=== PATIENT | male | born 1950 | race Caucasian/White ===

== ENCOUNTER 2016-06-23 22:21 | Emergency (ER) | payer MEDICARE ==
--- NOTE | 2016-06-24 01:08 | ED CLINICAL REPORT ---
Clinical Report - Physicians/Mid Levels [facility] [address] [place] [address] 06/23/2016 22:23 Patient: BERTHA ROMERO Time Seen: 0036. Arrived- By private vehicle. Historian- patient. HISTORY OF PRESENT ILLNESS Chief Complaint: VOMITING. This started today and is still present and worsening. It was abrupt in onset and has been constant but is not gone now. The patient has had nausea and vomiting. The illness is described as severe. (dizziness. reports feeling a pop in the left ear. states he has been dealing with URI symptoms off and on for the past few weeks. Reports also having a "plugged ear" and being on abx for the past few days. He states it was recently stopped because the ear did not show signs of infection on repeat exam and did not appear to be helping. no recent barotrauma.). Similar symptoms previously: None. Recent medical care: The patient was seen recently in a clinic. REVIEW OF SYSTEMS No fever, headache, chest pain, difficulty breathing or skin rash. No blurred vision. All systems otherwise negative, except as recorded above. PAST HISTORY See nurses notes. Medications: Alfuzosin HCl ER Oral (pt can't remember name ). A Statin - pt can't remember name . ASA. Omeprazole Oral. Allergies: Morphine and Related.(nausea, vomiting) Nausea Medication. (pt can't remember name ) Surgical gas. (gets very emotional ). SOCIAL HISTORY Never smoker. No alcohol use or drug use. No recent travel. Is a local resident. 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 ADDITIONAL NOTES The nursing notes have been reviewed. PHYSICAL EXAM Vital Signs: 06/23/2016 22:37 BP: 170/87. HR: 85. RR: 16. O2 saturation: 97%. Hypertensive. Oxygen saturation normal. Appearance: Alert. Oriented X3. Patient in moderate distress. (actively wretching and vomiting clear/white mucus). Eyes: Pupils equal, round and reactive to light. Eyes normal inspection. ENT: Ears normal. Nose normal. Pharynx normal. Neck: Normal inspection. Neck supple. CVS: Normal heart rate and rhythm. Heart sounds normal. Pulses normal. Respiratory: No respiratory distress. Breath sounds normal. No rales, rhonchi or wheezes. Abdomen: Soft and nontender. Bowel sounds normal. Back: Normal inspection. Skin: Skin warm and dry. Normal skin color. No rash. Normal skin turgor. Extremities: Extremities exhibit normal ROM. No lower extremity edema. Neuro: Oriented X 3. No motor deficit. No sensory deficit. LABS, X-RAYS, AND EKG Laboratory Tests: CBC w Diff: (EV: 06/23/2016 23:15) ( [facility]/23/2016 23:34) Final results Test Result Flag Units (Reference) WHITE BLOOD COUNT 16.2 H K/uL (4.5-11.5) RED BLOOD COUNT 5.06 M/uL (4.50-5.90) HEMOGLOBIN 15.1 gm/dL (13.5-17.5) HEMATOCRIT 45.6 % (41.0-53.0) MEAN CELL VOLUME 90 fL (80-100) MEAN CORPUSCULAR HGB 30 pg (26-34) MEAN CORPUSCULAR HGB CONC 33 g/dL (31-37) RED CELL DISTRIBUTION WIDTH 13.2 % (11.6-14.8) PLATELET COUNT 310 K/uL (150-400) LYMPH % 12.7 L % (25-40) MONO % 5.0 % (3-14) GRANULOCYTE % 82.3 CMP: (EV: 06/23/2016 23:15) ( [facility] 06/23/2016 23:47) Final results Test Result Flag Units (Reference) GLUCOSE 103 mg/dL (70-110) BUN 21 H mg/dL (7-18) CREATININE 1.1 mg/dL (0.6-1.3) Estimated GFR >60 mL/min Estimated GFR- >60 mL/min Note: Persistent reduction over 3 months in eGFR<60 mL/min/1.73 m2 defines CKD. Patients with eGFR values>=60 mL/min/1.73 m2 may also have CKD if evidence ofpersistent proteinuria. Additional information may be foundat [email or web address].org. SODIUM 142 mmol/L (136-145) POTASSIUM 3.9 mmol/L (3.5-5.1) CHLORIDE 106 mmol/L (98-107) CARBON DIOXIDE 26 mmol/L (21-32) CALCIUM 10.0 mg/dL (8.5-10.1) TOTAL PROTEIN 8.1 g/dL (6.4-8.2) ALBUMIN 4.0 g/dL (3.3-5.0) BILIRUBIN, TOTAL 0.3 mg/dL (0.0-1.0) ALKALINE PHOSPHATASE 78 U/L (46-116) AST (SGOT) 31 U/L (15-37) ALT (SGPT) 62 U/L (12-78) LIPASE 214 U/L (73-393) . PROGRESS AND PROCEDURES Course of Care: he patient is a pleasant 66-year-old male with past medical history significant for recent URI type symptoms as well as otitis media and recentcessation of antibiotics. The patient describes a picture in which thetympanic membrane likely has been disrupted. This coincides with the patient's examination well. Patient is having nausea and vomiting likely due to the middle ear disruption. Patient will be given nausea medication andthen subsequently meclizine for the vertiginous type of symptoms. Patient be reevaluated once his medications have been given. Patient reports no improvement with Zofran. Reglan will be given in addition to the Zofran that was provided. We'll reassess after the Reglan has been given symptoms are still persistent. Because of the patientcontinuednausea and vomiting, we'll provide patient Ativan as benzodiazepines are also noted to have antiemetic type effects. Patient was reevaluated by that significant improvement with his nausea and vomiting. Patient is no longer actively retching. I discussion patient in regards to his workup here in the emergency department. Laboratory studies were ordered after the patient could not betreated effectively with the Zofran or Reglan. Laboratory studies show elevated white blood cell counthowever no other abnormalities noted on examination and elevated white blood cell count is a nonspecific finding. Patient still reporting mild amount of dizziness while here in the emergency department. Patient was offered longer stay here in the emergency department as well as IV fluids. Patient is agreeable to the continued treatment and plan. Once IV fluids of been given, patient reported feeling significantly improved. Head discussion the patient in regards to symptoms here in the emergency department an ear nose and throat follow-up. Patient reports they'll follow up with his primary care Dr. Prescription for benzodiazepine for nausea provided to the patient. Of note, patient discloses to me that he brought his here to the emergency departmentseveral months agoand was diagnosed with cancer. Patient reports having astressfultime dealing with thenew diagnosis ofcancer with his spouse. Patient reports being under a significant amount of stress. Expressed my condolences for the patient and thepatient's spouse. Disposition: Discharged. Condition: good. CLINICAL IMPRESSION 06/23/2016 22:37 BP: 170/87. HR: 85. RR: 16. O2 saturation: 97%. Acute nontraumatic perforation of the left tympanic membrane, (acute). Acute vertigo of peripheral origin: labrynthitis. Hypertensive. Oxygen saturation normal. INSTRUCTIONS Warnings: GENERAL WARNINGS: Return or contact your physician immediately if your condition worsens or changes unexpectedly, if not improving as expected, or if other problems arise. SPECIFICALLY, return if you develop pain, fever, vomiting, the inability to keep fluids down, blood in vomitus, blood in diarrhea, fainting or lightheadedness. Your Current Medications: CONTINUE TAKING THE FOLLOWING MEDICATIONS: A Statin - pt can't remember name *. Alfuzosin HCl ER Oral : pt can't remember name. ASA*. Omeprazole Oral. Prescription Medications: Clonazepam 0.5 mg orally disintegrating tablet: Take 1 orally every 6 hours. Dispense fifteen (15). No refills. (PRN nausea/vomiting) Follow-up: Return to the emergency department as needed. Follow up with your doctor in three days. Reason for referral: recheck today's concerns. Summary of care provided to patient via paper. Screening today revealed the patient's blood pressure to be in the normal range. The patient should follow up with a primary care provider for blood pressure management. Understanding of the discharge instructions verbalized by patient. Follow-up with: Steven Roche MD, ENT, , [address], , [place], [id number] Follow up in three days. Reason for referral: recheck today's concerns. Summary of care provided to patient via paper. (Electronically signed by Demarcus Llamas Dr. 06/24/2016 5:59)
--- NOTE | 2016-06-24 01:08 | ED NURSING NOTES ---
Clinical Report - Nurses [facility] [address] [place] [address] 06/23/2016 22:23 Patient: BERTHA ROMERO TRIAGE Triage time 22:37. Acuity: LEVEL 3. Chief Complaint: NAUSEA and VOMITING (Left ear pain, fullness). 22:49. Alert. SEPSIS SCREEN: Sepsis Screen. Negative (no infection suspected/documented). --22:49 Nael Moreland R.N. 22:37 06/23/16. BP: 170/87. HR: 85. RR: 16. O2 saturation: 97% on room air. --22:49 Nael Moreland R.N. Weight: 89.3 kg stated. Height/Length: 69.5 inches Per Patient. BMI: 28.7. --22:47 Nael Moreland R.N. Medications ASA. Omeprazole Oral. --22:44 Nael Moreland R.N. A Statin - pt can't remember name . --22:45 Nael Moreland R.N. Alfuzosin HCl ER Oral (pt can't remember name ). --22:45 Nael Moreland R.N. Allergies Morphine and Related.(nausea, vomiting) --22:41 Nael Moreland R.N. Surgical gas. (gets very emotional ) --22:41 Nael Moreland R.N. Nausea Medication. (pt can't remember name ) --23:01 Nael Moreland R.N. The following entry was struck and corrected by Nael Moreland R.N., 23:02 (06/23/16) Reason for correction - other(correction). <<STRICKEN ENTRY-- Surgical gas. --22:41 Nael Moreland R.N. --END STRIKE>> The following entry was struck and corrected by Nael Moreland R.N., 23:01 (06/23/16) Reason for correction - other(correction). <<STRICKEN ENTRY-- Morphine and Related. --22:41 Nael Moreland R.N. --END STRIKE>>. Medication/allergy information source: the patient. --22:49 Nael Moreland R.N. History Arrived by private vehicle, and accompanied by friend. Primary physician (Dar). Onset. (Ear pain for about 1 week, vomiting for about 1 hr). ( Patient reports being treated for an ear infection was taken off the anti-biotic because it wasn't helping, tonight about 2129 he felt a pop in his left ear then began to nauseated with vomiting). 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 PAST MEDICAL HX: Immunizations: up-to-date. SOCIAL HX: Former smoker, end date 2007. No alcohol use or drug use. No infectious disease exposure. ABUSE ASSESSMENT: No report of abuse. FALL RISK ASSESSMENT: Fall risk assessment completed. No fall risk identified. NUTRITIONAL RISK ASSESSMENT: The nutritional risk assessment revealed no deficiencies. FUNCTIONAL ASSESSMENT: Functional assessment: no impairments noted. LEARNING NEEDS ASSESSMENT: The learning needs assessment revealed no barriers. SKIN INTEGRITY ASSESSMENT: Skin integrity risk assessment completed. No skin integrity risk identified. --22:49 Nael Moreland R.N. PROBLEMS: Appendicitis. Dysphagia. Acid Reflux. Diverticulosis. Diverticulitis. --22:42 Nael Moreland R.N. ADDITIONAL SURGERIES: Back Surgery. Cervical spine fusion. Colonoscopy. Neck Surgery. --22:43 Nael Moreland R.N. Interventions ID band on patient. To treatment room. --22:49 Neal Moreland R.N. PHYSICAL ASSESSMENT 22:40. To room via wheelchair. Patient gowned. GENERAL / NEURO / PSYCH: Alert. Oriented X 4. HEENT: No facial asymmetry noted. Mucous membranes are pink. RESPIRATORY: Respirations not labored. GI / : Emesis noted. Has vomited once. SKIN: Skin intact. Skin is warm and dry. Normal skin turgor. --22:40 Nael Moreland R.N. NURSING PROGRESS NOTES 22:40. Head of bed elevated. Two patient identifiers checked. Call light placed in reach. Bed placed in lowest position. Brakes of bed on. Patient ready for evaluation- chart flagged. --22:40 Nael Moreland R.N. 22:47 06/23/2016 Zofran ODT (Ondansetron) PO 4 mg given. Allergies verified and confirmed 5 rights. --22:50 Nael Moreland R.N. 23:12 06/23/2016 Site #1 started via IV in the right antecubital space with an 20g angiocath, with aseptic technique and good blood return; one attempt. Blood drawn: rainbow set. Labeled in the presence of the patient and held. Saline lock flushed with 10 mL saline. --23:17 Nael Moreland R.N. 23:14 06/23/2016 Reglan (Metoclopramide HCl) IVP 10 mg given over 2 minute(s) via site #1. Allergies verified and confirmed 5 rights. IV patency established. IV site checked: no pain, redness, or swelling. IV flushed thoroughly pre- and post-medication administration. --23:18 Nael Moreland R.N. 23:26 06/23/2016 Ativan (LORazepam) IVP 1 mg given over 2 minute(s) via site #1. Allergies verified, confirmed 5 rights and sedative warning given to the patient and patient's cash management clerk. IV patency established. IV site checked: no pain, redness, or swelling. IV flushed thoroughly pre- and post-medication administration. --23:29 Nael Moreland R.N. 23:31. Pulse oximeter placed on patient. --23:31 Nael Moreland R.N. 23:33. Oxygen administered by nasal cannula at 2 liters. --23:33 Nael Moreland R.N. 23:51 06/23/2016 Meclizine PO 25 mg given. Allergies verified, confirmed 5 rights and sedative warning given to the patient. --23:51 Nael Moreland R.N. 00:14 06/24/2016 Started bag #1 1000 mL IV Fluids IV NS (Saline); at 1000 mL/hr over 1 hour(s) via site #1 --00:14 Nael Moreland R.N. 00:56. Oxygen discontinued. --01:00 Nael Moreland R.N. 00:56 06/24/2016 IV Saline Lock Drip IV Discontinued: bag #1 infused. Total amount infused: 1000 mL. IV patency established. IV site checked: no pain, redness, or swelling. IV flushed thoroughly. --01:01 Nael Moreland R.N. 01:06. The patient is calm and resting quietly. RESPIRATORY: No respiratory distress. SKIN: Skin is warm and dry. Skin color within normal limits. --01:09 Nael Moreland R.N. 23:01 06/23/2016 Zofran ODT PO Response: (no improvement). --01:13 Nael Moreland R.N. 23:37 06/23/2016 Reglan IVP Response: (no improvement, pt still dry heaving). --01:15 Nael Moreland R.N. 00:56 06/24/2016 IV Fluids IV NS Discontinued: bag #1 infused. Total amount infused: 1000 mL. IV patency established. IV site checked: no pain, redness, or swelling. IV flushed thoroughly. --01:10 Nael Moreland R.N. 22:50 Patient continues to vomit. --01:12 Nael Moreland R.N. DISPOSITION / DISCHARGE 00:58 06/24/2016 Site #1 removed upon discharge. Catheter intact. Bandage applied. --01:02 Nael Moreland R.N. Departure time: 01:09. Condition at departure: stable. No learning barriers present. Discharge instructions provided and reviewed with cash management clerk and the patient. Reviewed medication(s) side effects, precautions, dosing and course information. Prescription(s) given to the patient. Patient and cash management clerk verbalized understanding. Written instructions provided in Albanian. The patient was discharged home and accompanied by cash management clerk. He left the Emergency Department ambulatory and via private vehicle. Electrophysiology Scientist driving. FALL RISK ASSESSMENT: Fall risk assessment completed. No fall risk identified. --01:08 Nael Moreland R.N. 00:57 06/24/16. BP: 105/53. HR: 66. RR: 15. O2 saturation: 95% on room air. Pain level now: 0/10. --01:08 Nael Moreland R.N. Locked/Released at 06/24/2016 1:15 by Nael Moreland R.N.
--- NOTE | 2016-06-24 01:08 | ED NURSING NOTES ---
Clinical Report - Nurses [facility] [address] [place] [address] 06/23/2016 22:23 Patient: BERTHA ROMERO TRIAGE Triage time 22:37. Acuity: LEVEL 3. Chief Complaint: NAUSEA and VOMITING (Left ear pain, fullness). 22:49. Alert. SEPSIS SCREEN: Sepsis Screen. Negative (no infection suspected/documented). --22:49 Nael Moreland R.N. 22:37 06/23/16. BP: 170/87. HR: 85. RR: 16. O2 saturation: 97% on room air. --22:49 Nael Moreland R.N. Weight: 89.3 kg stated. Height/Length: 69.5 inches Per Patient. BMI: 28.7. --22:47 Nael Moreland R.N. Medications ASA. Omeprazole Oral. --22:44 Nael Moreland R.N. A Statin - pt can't remember name . --22:45 Nael Moreland R.N. Alfuzosin HCl ER Oral (pt can't remember name ). --22:45 Nael Moreland R.N. Allergies Morphine and Related.(nausea, vomiting) --22:41 Nael Moreland R.N. Surgical gas. (gets very emotional ) --22:41 Nael Moreland R.N. Nausea Medication. (pt can't remember name ) --23:01 Nael Moreland R.N. The following entry was struck and corrected by Nael Moreland R.N., 23:02 (06/23/16) Reason for correction - other(correction). <<STRICKEN ENTRY-- Surgical gas. --22:41 Nael Moreland R.N. --END STRIKE>> The following entry was struck and corrected by Nael Moreland R.N., 23:01 (06/23/16) Reason for correction - other(correction). <<STRICKEN ENTRY-- Morphine and Related. --22:41 Nael Moreland R.N. --END STRIKE>>. Medication/allergy information source: the patient. --22:49 Nael Moreland R.N. History Arrived by private vehicle, and accompanied by friend. Primary physician (Dar). Onset. (Ear pain for about 1 week, vomiting for about 1 hr). ( Patient reports being treated for an ear infection was taken off the anti-biotic because it wasn't helping, tonight about 2129 he felt a pop in his left ear then began to nauseated with vomiting). 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 PAST MEDICAL HX: Immunizations: up-to-date. SOCIAL HX: Former smoker, end date 2007. No alcohol use or drug use. No infectious disease exposure. ABUSE ASSESSMENT: No report of abuse. FALL RISK ASSESSMENT: Fall risk assessment completed. No fall risk identified. NUTRITIONAL RISK ASSESSMENT: The nutritional risk assessment revealed no deficiencies. FUNCTIONAL ASSESSMENT: Functional assessment: no impairments noted. LEARNING NEEDS ASSESSMENT: The learning needs assessment revealed no barriers. SKIN INTEGRITY ASSESSMENT: Skin integrity risk assessment completed. No skin integrity risk identified. --22:49 Nael Moreland R.N. PROBLEMS: Appendicitis. Dysphagia. Acid Reflux. Diverticulosis. Diverticulitis. --22:42 Nael Moreland R.N. ADDITIONAL SURGERIES: Back Surgery. Cervical spine fusion. Colonoscopy. Neck Surgery. --22:43 Nael Moreland R.N. Interventions ID band on patient. To treatment room. --22:49 Nael Moreland R.N. PHYSICAL ASSESSMENT 22:40. To room via wheelchair. Patient gowned. GENERAL / NEURO / PSYCH: Alert. Oriented X 4. HEENT: No facial asymmetry noted. Mucous membranes are pink. RESPIRATORY: Respirations not labored. GI / : Emesis noted. Has vomited once. SKIN: Skin intact. Skin is warm and dry. Normal skin turgor. --22:40 Nael Moreland R.N. NURSING PROGRESS NOTES 22:40. Head of bed elevated. Two patient identifiers checked. Call light placed in reach. Bed placed in lowest position. Brakes of bed on. Patient ready for evaluation- chart flagged. --22:40 Nael Moreland R.N. 22:47 06/23/2016 Zofran ODT (Ondansetron) PO 4 mg given. Allergies verified and confirmed 5 rights. --22:50 Nael Moreland R.N. 23:12 06/23/2016 Site #1 started via IV in the right antecubital space with an 20g angiocath, with aseptic technique and good blood return; one attempt. Blood drawn: rainbow set. Labeled in the presence of the patient and held. Saline lock flushed with 10 mL saline. --23:17 Nael Moreland R.N. 23:14 06/23/2016 Reglan (Metoclopramide HCl) IVP 10 mg given over 2 minute(s) via site #1. Allergies verified and confirmed 5 rights. IV patency established. IV site checked: no pain, redness, or swelling. IV flushed thoroughly pre- and post-medication administration. --23:18 Nael Moreland R.N. 23:26 06/23/2016 Ativan (LORazepam) IVP 1 mg given over 2 minute(s) via site #1. Allergies verified, confirmed 5 rights and sedative warning given to the patient and patient's customer service coordinator. IV patency established. IV site checked: no pain, redness, or swelling. IV flushed thoroughly pre- and post-medication administration. --23:29 Nael Moreland R.N. 23:31. Pulse oximeter placed on patient. --23:31 Nael Moreland R.N. 23:33. Oxygen administered by nasal cannula at 2 liters. --23:33 Nael Moreland R.N. 23:51 06/23/2016 Meclizine PO 25 mg given. Allergies verified, confirmed 5 rights and sedative warning given to the patient. --23:51 Nael Moreland R.N. 00:14 06/24/2016 Started bag #1 1000 mL IV Fluids IV NS (Saline); at 1000 mL/hr over 1 hour(s) via site #1 --00:14 Nael Moreland R.N. 00:56. Oxygen discontinued. --01:00 Nael Moreland R.N. 00:56 06/24/2016 IV Saline Lock Drip IV Discontinued: bag #1 infused. Total amount infused: 1000 mL. IV patency established. IV site checked: no pain, redness, or swelling. IV flushed thoroughly. --01:01 aNel Moreland R.N. 01:06. The patient is calm and resting quietly. RESPIRATORY: No respiratory distress. SKIN: Skin is warm and dry. Skin color within normal limits. --01:09 Nael Moreland R.N. 23:01 06/23/2016 Zofran ODT PO Response: (no improvement). --01:13 Nael Moreland R.N. 23:37 06/23/2016 Reglan IVP Response: (no improvement, pt still dry heaving). --01:15 Nael Moreland R.N. 00:56 06/24/2016 IV Fluids IV NS Discontinued: bag #1 infused. Total amount infused: 1000 mL. IV patency established. IV site checked: no pain, redness, or swelling. IV flushed thoroughly. --01:10 Nael Moreland R.N. 22:50 Patient continues to vomit. --01:12 Nael Moreland R.N. DISPOSITION / DISCHARGE 00:58 06/24/2016 Site #1 removed upon discharge. Catheter intact. Bandage applied. --01:02 Nael Moreland R.N. Departure time: 01:09. Condition at departure: stable. No learning barriers present. Discharge instructions provided and reviewed with customer service coordinator and the patient. Reviewed medication(s) side effects, precautions, dosing and course information. Prescription(s) given to the patient. Patient and customer service coordinator verbalized understanding. Written instructions provided in Frisian. The patient was discharged home and accompanied by customer service coordinator. He left the Emergency Department ambulatory and via private vehicle. Car Manager driving. FALL RISK ASSESSMENT: Fall risk assessment completed. No fall risk identified. --01:08 Nael Moreland R.N. 00:57 06/24/16. BP: 105/53. HR: 66. RR: 15. O2 saturation: 95% on room air. Pain level now: 0/10. --01:08 Nael Moreland R.N. Locked/Released at 06/24/2016 1:15 by Nael Moreland R.N.
--- NOTE | 2016-06-24 01:08 | ED ORDER SUMMARY ---
..... Patient: BERTHA ROMERO OrderSheet [facility] VisitID: [id number] [address] [place] [address] 66y, M Registration Date/Time: 06/23/2016 ORDER SHEET Weight: 89.3 kg (stated) Allergies: Morphine and Related, Surgical gas, Nausea Medication GENERAL ORDERS: CBC w Diff Urgent (23:26 06/23/2016 Kathy Loya) (Ack 23:28 Michel) (23:29 JQuivey R.N.) CMP Urgent (23:26 06/23/2016 Kathy Loya) (Ack 23:28 Michel) (23:29 JQuivey R.N.) Lipase Urgent (23:06/23/2016 Kathy Loya) (Ack 23:28 Michel) (23:29 JQuivey R.N.) Pulse oximeter (23:26 06/23/2016 Kathy Loya) (23:29 JQuivey R.N.) MEDICATION ORDERS: Zofran ODT PO 4 mg (NOW) (22:45 06/23/2016 Kathy Loya) (22:50 JQuivey R.N.) Meclizine PO 25 mg (give 15 minutes after zofran) (22:45 06/23/2016 Kathy Loya) (Ack 22:53 JQuivey R.N.) (23:51 JQuivey R.N.) IV FLUIDS: Reglan IV 10 mg (NOW) (23:06/23/2016 Kathy Loya) (23:18 JQuivey R.N.) IV Saline Lock (23:06/23/2016 Kathy Loya) (23:17 JQuivey R.N.) Ativan IV 1 mg (HIGH ALERT MEDICATION, NOW) (23:25 06/23/2016 Kathy Loya) (Ack 23:26 JQuivey R.N.) (23:29 JQuivey R.N.) IV NS : initial bolus 1000 mL (1000 mL/hr), then none - for X1 (NOW) (00:11 06/24/2016 Kathy Loya) (Ack 0:13 JQuivey R.N.) (0:14 JQuivey R.N.) ORDER SHEET NOTES: [Electronically signed by Nael Moreland R.N. (01:15 06/24/2016)] [Electronically signed by Demarcus Llamas Dr. (05:59 06/24/2016)] [Electronically locked/signed by Nael Moreland R.N. (01:15 06/24/2016)]
--- NOTE | 2016-06-24 01:08 | ED ORDER SUMMARY ---
..... Patient: BERTHA ROMERO OrderSheet [facility] VisitID: [id number] [address] [place] [address] 66y, M Registration Date/Time: 06/23/2016 ORDER SHEET Weight: 89.3 kg (stated) Allergies: Morphine and Related, Surgical gas, Nausea Medication GENERAL ORDERS: CBC w Diff Urgent (23:26 06/23/2016 Kathy Lyoa) (Ack 23:28 Michel) (23:29 JQuivey R.N.) CMP Urgent (23:26 06/23/2016 Kathy Loya) (Ack 23:28 Michel) (23:29 JQuivey R.N.) Lipase Urgent (23:06/23/2016 Kathy Loya) (Ack 23:28 Michel) (23:29 JQuivey R.N.) Pulse oximeter (23:26 06/23/2016 Kathy Loya) (23:29 JQuivey R.N.) MEDICATION ORDERS: Zofran ODT PO 4 mg (NOW) (22:45 06/23/2016 Kathy Loya) (22:50 JQuivey R.N.) Meclizine PO 25 mg (give 15 minutes after zofran) (22:45 06/23/2016 Kathy Loya) (Ack 22:53 JQuivey R.N.) (23:51 JQuivey R.N.) IV FLUIDS: Reglan IV 10 mg (NOW) (23:06/23/2016 Kathy Loya) (23:18 JQuivey R.N.) IV Saline Lock (23:06/23/2016 Kathy Loya) (23:17 JQuivey R.N.) Ativan IV 1 mg (HIGH ALERT MEDICATION, NOW) (23:25 06/23/2016 Kathy Loya) (Ack 23:26 JQuivey R.N.) (23:29 JQuivey R.N.) IV NS : initial bolus 1000 mL (1000 mL/hr), then none - for X1 (NOW) (00:11 06/24/2016 Kathy Loya) (Ack 0:13 JQuivey R.N.) (0:14 JQuivey R.N.) ORDER SHEET NOTES: [Electronically signed by Nael Moreland R.N. (01:15 06/24/2016)] [Electronically signed by Demarcus Llamas Dr. (05:59 06/24/2016)] [Electronically locked/signed by Nael Moreland R.N. (01:15 06/24/2016)]
--- NOTE | 2016-06-24 06:00 | ED DISCHARGE INSTRUCTIONS ---
Patient: BERTHA ROMERO General Instructions Merged With [facility] VisitID: [id number] [address] [place] [address] 66y, M Registration Date/Time: 06/23/2016 06/23/2016 22:37 BP: 170/87. HR: 85. RR: 16. O2 saturation: 97%. Acute nontraumatic perforation of the left tympanic membrane, (acute). Acute vertigo of peripheral origin: labrynthitis. Hypertensive. Oxygen saturation normal. INSTRUCTIONS Warnings: GENERAL WARNINGS: Return or contact your physician immediately if your condition worsens or changes unexpectedly, if not improving as expected, or if other problems arise. SPECIFICALLY, return if you develop pain, fever, vomiting, the inability to keep fluids down, blood in vomitus, blood in diarrhea, fainting or lightheadedness. Your Current Medications: CONTINUE TAKING THE FOLLOWING MEDICATIONS: A Statin - pt can't remember name *. Alfuzosin HCl ER Oral : pt can't remember name. ASA*. Omeprazole Oral. Prescription Medications: Clonazepam 0.5 mg orally disintegrating tablet: Take 1 orally every 6 hours. Dispense fifteen (15). No refills. (PRN nausea/vomiting) Follow-up: Return to the emergency department as needed. Follow up with your doctor in three days. Reason for referral: recheck today's concerns. Summary of care provided to patient via paper. Screening today revealed the patient's blood pressure to be in the normal range. The patient should follow up with a primary care provider for blood pressure management. Understanding of the discharge instructions verbalized by patient. Follow-up with: Steven Roche MD, ENT, , [address], , [place], [id number] Follow up in three days. Reason for referral: recheck today's concerns. Summary of care provided to patient via paper. ADDITIONAL INFORMATION Ruptured Eardrum: Traumatic The eardrum is a thin membrane about one inch from the opening of the ear canal. It is easily injured by putting pencils, sticks, les-pins or Q-tips into the ear canal. It is also injured by a loud noise close to the ear or a slap to the ear. This will cause pain and some hearing loss on that side. There may be some clear or bloody drainage the first day. If no infection is present, then antibiotics are not needed. The goal is to keep the ear dry and clean until the eardrum heals. Normal hearing returns in most cases, but a follow-up exam with an pearl digger is advised (Ear, Nose & Throat doctor). Home Care: Keep a cotton plug in the ear to keep it clean and protect the inner ear. Do not put any drops into your ear unless prescribed by your doctor. Do not get water in your ear when showering or bathing. No swimming until approved by your doctor. Pain control: Unless another medicine was prescribed for pain:Children may use acetaminophen (Tylenol) for fever, fussiness or discomfort. In infants over six months of age, you may give ibuprofen (Children's Motrin) instead of Tylenol. [NOTE: If your child has chronic liver or kidney disease or ever had a stomach ulcer or GI bleeding, talk with your doctor before using these medicines.] (Aspirin should never be used in anyone under 18 years of age who is ill with a fever. It may cause severe liver damage.)Adults may use acetaminophen (Tylenol) or ibuprofen (Motrin, Advil).[NOTE: If you have chronic liver or kidney disease or ever had a stomach ulcer or GI bleeding, talk with your doctor before using these medicines.] Follow Up with your doctor within the next two weeks or as directed by our staff to ensure that the eardrum is healing. A hearing test should be done after the eardrum has healed to be sure your hearing has returned to normal Get Prompt Medical Attention if any of the following occur: Fever of 100.4F (38C) oral or higher, not better with fever medication Fluid drainage from the ear for more than 24 hours Increasing ear pain Headache or dizziness Labyrinthitis The "inner ear" is located behind the middle ear. It is part of the balance center of your body. When the inner ear becomes irritated or inflamed it causes an illness known as Labyrinthitis. It is most often due to a viral condition, but often a source is not found. Labyrinthitis causes sudden "vertigo" (a feeling that you or the room is spinning). There is a loss of balance when trying to walk, intense nausea and vomiting. Head movement from side to side, or changes in body position (from lying to sitting or standing) may worsen symptoms. An episode of vertigo may last seconds, minutes or hours. Once you are over the first episode of vertigo, it may never return. Sometimes symptoms recur off and on over several weeks or longer depending on the cause. Home Care: If symptoms are severe, rest quietly in bed. Change positions slowly. There is usually one position that will feel best, such as lying on one side or the other or lying on your back with your head slightly raised on pillows. Reduce your salt intake until you are symptom free for one month. Fluid retention caused by salt can make this condition worse. Do not drive or work with dangerous machinery for one week after symptoms disappear. Be cautious about using stairs. (In case of a sudden unexpected recurrence.) Take medicine as prescribed to relieve your symptoms. Unless another medicine was prescribed for nausea, vomiting and vertigo, you may use [id number] motion sickness pills, such as meclizine (Bonine, Bonamine, Antivert) or dimenhydrinate (Dramamine). All these medicines may cause drowsiness. Follow Up with your doctor or as advised by our staff. Get Prompt Medical Attention if any of the following occur: Worsening of vertigo, not controlled by medicine prescribed Repeated vomiting not relieved by medicine prescribed Increased weakness or fainting Headache or unusual drowsiness Difficulty with vision, speech or movement of the face, arms or legs Clonazepam Oral tablet What is this medicine? CLONAZEPAM (kloe NA ze thomas) is a benzodiazepine. It is used to treat certain types of seizures. It is also used to treat panic disorder. How should I use this medicine? Take this medicine by mouth with a glass of water. Follow the directions on the prescription label. If it upsets your stomach, take it with food or milk. Take your medicine at regular intervals. Do not take it more often than directed. Do not stop taking or change the dose except on the advice of your doctor or health out of school hours care worker. A special MedGuide will be given to you by the pharmacist with each prescription and refill. Be sure to read this information carefully each time. Talk to your convertible sofa bedspring tester regarding the use of this medicine in children. Special care may be needed. What side effects may I notice from receiving this medicine? Side effects that you should report to your doctor or health out of school hours care worker as soon as possible: allergic reactions like skin rash, itching or hives, swelling of the face, lips, or tongue changes in vision confusion depression hallucinations mood changes, excitability or aggressive behavior movement difficulty, staggering or jerky movements muscle cramps, weakness tremors unusual eye movements Side effects that usually do not require medical attention (report to your doctor or health out of school hours care worker if they continue or are bothersome): constipation or diarrhea difficulty sleeping, nightmares dizziness, drowsiness headache increased saliva from your mouth nausea, vomiting What may interact with this medicine? herbal or dietary supplements medicines for depression, anxiety, or psychotic disturbances medicines for fungal infections like fluconazole, itraconazole, ketoconazole, voriconazole medicines for HIV infection or AIDS medicines for sleep prescription pain medicines propantheline rifampin sevelamer some medicines for seizures like carbamazepine, phenobarbital, phenytoin, primidone What if I miss a dose? If you miss a dose, take it as soon as you can. If it is almost time for your next dose, take only that dose. Do not take double or extra doses. Where should I keep my medicine? Keep out of the reach of children. This medicine can be abused. Keep your medicine in a safe place to protect it from theft. Do not share this medicine with anyone. Selling or giving away this medicine is dangerous and against the law. Store at room temperature between 15 and 30 degrees C (59 and 86 degrees F). Protect from light. Keep container tightly closed. Throw away any unused medicine after the expiration date. What should I tell my health care provider before I take this medicine? They need to know if you have any of these conditions: an alcohol or drug abuse problem bipolar disorder, depression, psychosis or other mental health condition glaucoma kidney or liver disease lung or breathing disease myasthenia gravis Parkinson's disease seizures or a history of seizures suicidal thoughts an unusual or allergic reaction to clonazepam, other benzodiazepines, foods, dyes, or preservatives or trying to get breast-feeding What should I watch for while using this medicine? Visit your doctor or health out of school hours care worker for regular checks on your progress. Your body may become dependent on this medicine. If you have been taking this medicine regularly for some time, do not suddenly stop taking it. You must gradually reduce the dose or you may get severe side effects. Ask your doctor or health out of school hours care worker for advice before increasing or decreasing the dose. Even after you stop taking this medicine it can still affect your body for several days. If you suffer from several types of seizures, this medicine may increase the chance of grand mal seizures (epilepsy). Let your doctor or health out of school hours care worker know, he or she may want to prescribe an additional medicine. You may get drowsy or dizzy. Do not drive, use machinery, or do anything that needs mental alertness until you know how this medicine affects you. To reduce the risk of dizzy and fainting spells, do not stand or sit up quickly, especially if you are an older patient. Alcohol may increase dizziness and drowsiness. Avoid alcoholic drinks. Do not treat yourself for coughs, colds or allergies without asking your doctor or health out of school hours care worker for advice. Some ingredients can increase possible side effects. The use of this medicine may increase the chance of suicidal thoughts or actions. Pay special attention to how you are responding while on this medicine. Any worsening of mood, or thoughts of suicide or dying should be reported to your health out of school hours care worker right away. Women who become while using this medicine may enroll in the [place]iepile[employer] Drug Registry by calling . This registry collects information about the safety of antiepileptic drug use during . You have been given the following additional information: Ruptured Tm, Traumatic Labyrinthitis Clonazepam Oral tablet (Electronically signed by Demarcus Llamas Dr. 06/24/2016 5:59)
--- NOTE | 2016-06-24 06:00 | ED MED RECONCILIATION SUMMARY ---
Patient: BERTHA ROMERO Medication Reconciliation Report [facility] VisitID: [id number] [address] [place] [address] 66y, M Registration Date/Time: 06/23/2016 Weight: 89.3 kg Height/Length: (not available) BMI: 28.7 ALLERGIES: Morphine and Related, Nausea Medication, Surgical gas The patient's Home Medications are listed below: CONTINUE TAKING THE FOLLOWING MEDICATIONS: A Statin - pt can't remember name Alfuzosin HCl ER Oral, pt can't remember name ASA Omeprazole Oral The source(s) of the original Home Medication information: patient The following Medications were given to the patient in the Emergency Department: Zofran ODT [PO] PO 4 mg, administered: 06/23/2016 10:47:00 PM Reglan [IVP] IVP 10 mg, administered: 06/23/2016 11:14:00 PM Ativan [IVP] IVP 1 mg, administered: 06/23/2016 11:26:00 PM Meclizine [PO] PO 25 mg, administered: 06/23/2016 11:51:00 PM IV NS IV Fluids bolus 0, then 1000 mL/hr, administered: 06/24/2016 12:14:00 AM The following Medications were prescribed to the patient: Clonazepam 0.5 mg orally disintegrating tablet: Take 1 orally every 6 hours. Dispense fifteen (15). No refills.(PRN nausea/vomiting) -- Demarcus Llamas Dr.
--- NOTE | 2016-06-24 06:00 | ED MAR SUMMARY ---
..... Medication Administration Record [facility] [address], [place] [address] Patient: BERTHA ROMERO Visit ID: [id number] 66y, M Weight: 89.3 kg Height/Length: 69.5 in BMI: 28.7 ALLERGIES: Surgical gas, Morphine and Related, Nausea Medication Given 22:47 06/23/2016 Nael Moreland R.N. Medication Administered: ZOFRAN ODT [PO] (ONDANSETRON), Dose: 4 mg PO. Medication Ordered: Zofran ODT PO 4 mg (NOW). Given 23:14 06/23/2016 Nael Moreland R.N. Medication Administered: REGLAN [IVP] (METOCLOPRAMIDE HCL), Dose: 10 mg IVP over 2 minute(s), Site: #1 right AC. Medication Ordered: Reglan IV 10 mg (NOW). Given 23:26 06/23/2016 Nael Moreland R.N. Medication Administered: ATIVAN [IVP] (LORAZEPAM), Dose: 1 mg IVP over 2 minute(s), Site: #1 right AC. Medication Ordered: Ativan IV 1 mg (HIGH ALERT MEDICATION, NOW). Given 23:51 06/23/2016 Nael Moreland R.N. Medication Administered: MECLIZINE [PO], Dose: 25 mg PO. Medication Ordered: Meclizine PO 25 mg (give 15 minutes after zofran). Start 00:14 06/24/2016 Nael Moreland R.N., Stop 00:56 06/24/2016 Nael Moreland R.N. Medication Administered: IV NS (SALINE), Dose: IV Fluids over 1 hour(s), Rate: 1000 mL/hr, Dispensed: 1000 mL bag, Site: #1 right AC. Medication Ordered: IV NS : initial bolus 1000 mL (1000 mL/hr), then none - for X1 (NOW).
--- NOTE | 2016-06-24 06:00 | ED MAR SUMMARY ---
..... Medication Administration Record [facility] [address], [place] [address] Patient: BERTHA ROMERO Visit ID: [id number] 66y, M Weight: 89.3 kg Height/Length: 69.5 in BMI: 28.7 ALLERGIES: Surgical gas, Morphine and Related, Nausea Medication Given 22:47 06/23/2016 Nael Moreland R.N. Medication Administered: ZOFRAN ODT [PO] (ONDANSETRON), Dose: 4 mg PO. Medication Ordered: Zofran ODT PO 4 mg (NOW). Given 23:14 06/23/2016 Nael Moreland R.N. Medication Administered: REGLAN [IVP] (METOCLOPRAMIDE HCL), Dose: 10 mg IVP over 2 minute(s), Site: #1 right AC. Medication Ordered: Reglan IV 10 mg (NOW). Given 23:26 06/23/2016 Nael Moreland R.N. Medication Administered: ATIVAN [IVP] (LORAZEPAM), Dose: 1 mg IVP over 2 minute(s), Site: #1 right AC. Medication Ordered: Ativan IV 1 mg (HIGH ALERT MEDICATION, NOW). Given 23:51 06/23/2016 Nael Moreland R.N. Medication Administered: MECLIZINE [PO], Dose: 25 mg PO. Medication Ordered: Meclizine PO 25 mg (give 15 minutes after zofran). Start 00:14 06/24/2016 Nael Moreland R.N., Stop 00:56 06/24/2016 Nael Moreland R.N. Medication Administered: IV NS (SALINE), Dose: IV Fluids over 1 hour(s), Rate: 1000 mL/hr, Dispensed: 1000 mL bag, Site: #1 right AC. Medication Ordered: IV NS : initial bolus 1000 mL (1000 mL/hr), then none - for X1 (NOW).
--- NOTE | 2016-06-24 06:00 | ED MED RECONCILIATION SUMMARY ---
Patient: BERTHA ROMERO Medication Reconciliation Report [facility] VisitID: [id number] [address] [place] [address] 66y, M Registration Date/Time: 06/23/2016 Weight: 89.3 kg Height/Length: (not available) BMI: 28.7 ALLERGIES: Morphine and Related, Nausea Medication, Surgical gas The patient's Home Medications are listed below: CONTINUE TAKING THE FOLLOWING MEDICATIONS: A Statin - pt can't remember name Alfuzosin HCl ER Oral, pt can't remember name ASA Omeprazole Oral The source(s) of the original Home Medication information: patient The following Medications were given to the patient in the Emergency Department: Zofran ODT [PO] PO 4 mg, administered: 06/23/2016 10:47:00 PM Reglan [IVP] IVP 10 mg, administered: 06/23/2016 11:14:00 PM Ativan [IVP] IVP 1 mg, administered: 06/23/2016 11:26:00 PM Meclizine [PO] PO 25 mg, administered: 06/23/2016 11:51:00 PM IV NS IV Fluids bolus 0, then 1000 mL/hr, administered: 06/24/2016 12:14:00 AM The following Medications were prescribed to the patient: Clonazepam 0.5 mg orally disintegrating tablet: Take 1 orally every 6 hours. Dispense fifteen (15). No refills.(PRN nausea/vomiting) -- Demarcus Llamas Dr.
--- NOTE | 2016-06-24 06:00 | ED DISCHARGE INSTRUCTIONS ---
Patient: BERTHA ROMERO General Instructions [facility] VisitID: [id number] [address] [place] [address] 66y, M Registration Date/Time: 06/23/2016 06/23/2016 22:37 BP: 170/87. HR: 85. RR: 16. O2 saturation: 97%. Acute nontraumatic perforation of the left tympanic membrane, (acute). Acute vertigo of peripheral origin: labrynthitis. Hypertensive. Oxygen saturation normal. INSTRUCTIONS Warnings: GENERAL WARNINGS: Return or contact your physician immediately if your condition worsens or changes unexpectedly, if not improving as expected, or if other problems arise. SPECIFICALLY, return if you develop pain, fever, vomiting, the inability to keep fluids down, blood in vomitus, blood in diarrhea, fainting or lightheadedness. Your Current Medications: CONTINUE TAKING THE FOLLOWING MEDICATIONS: A Statin - pt can't remember name *. Alfuzosin HCl ER Oral : pt can't remember name. ASA*. Omeprazole Oral. Prescription Medications: Clonazepam 0.5 mg orally disintegrating tablet: Take 1 orally every 6 hours. Dispense fifteen (15). No refills. (PRN nausea/vomiting) Follow-up: Return to the emergency department as needed. Follow up with your doctor in three days. Reason for referral: recheck today's concerns. Summary of care provided to patient via paper. Screening today revealed the patient's blood pressure to be in the normal range. The patient should follow up with a primary care provider for blood pressure management. Understanding of the discharge instructions verbalized by patient. Follow-up with: Steven Roche MD, ENT, , [address], , [place], [id number] Follow up in three days. Reason for referral: recheck today's concerns. Summary of care provided to patient via paper. ADDITIONAL INFORMATION Ruptured Eardrum: Traumatic The eardrum is a thin membrane about one inch from the opening of the ear canal. It is easily injured by putting pencils, sticks, les-pins or Q-tips into the ear canal. It is also injured by a loud noise close to the ear or a slap to the ear. This will cause pain and some hearing loss on that side. There may be some clear or bloody drainage the first day. If no infection is present, then antibiotics are not needed. The goal is to keep the ear dry and clean until the eardrum heals. Normal hearing returns in most cases, but a follow-up exam with an executive search consultant is advised (Ear, Nose & Throat doctor). Home Care: Keep a cotton plug in the ear to keep it clean and protect the inner ear. Do not put any drops into your ear unless prescribed by your doctor. Do not get water in your ear when showering or bathing. No swimming until approved by your doctor. Pain control: Unless another medicine was prescribed for pain:Children may use acetaminophen (Tylenol) for fever, fussiness or discomfort. In infants over six months of age, you may give ibuprofen (Children's Motrin) instead of Tylenol. [NOTE: If your child has chronic liver or kidney disease or ever had a stomach ulcer or GI bleeding, talk with your doctor before using these medicines.] (Aspirin should never be used in anyone under 18 years of age who is ill with a fever. It may cause severe liver damage.)Adults may use acetaminophen (Tylenol) or ibuprofen (Motrin, Advil).[NOTE: If you have chronic liver or kidney disease or ever had a stomach ulcer or GI bleeding, talk with your doctor before using these medicines.] Follow Up with your doctor within the next two weeks or as directed by our staff to ensure that the eardrum is healing. A hearing test should be done after the eardrum has healed to be sure your hearing has returned to normal Get Prompt Medical Attention if any of the following occur: Fever of 100.4F (38C) oral or higher, not better with fever medication Fluid drainage from the ear for more than 24 hours Increasing ear pain Headache or dizziness Labyrinthitis The "inner ear" is located behind the middle ear. It is part of the balance center of your body. When the inner ear becomes irritated or inflamed it causes an illness known as Labyrinthitis. It is most often due to a viral condition, but often a source is not found. Labyrinthitis causes sudden "vertigo" (a feeling that you or the room is spinning). There is a loss of balance when trying to walk, intense nausea and vomiting. Head movement from side to side, or changes in body position (from lying to sitting or standing) may worsen symptoms. An episode of vertigo may last seconds, minutes or hours. Once you are over the first episode of vertigo, it may never return. Sometimes symptoms recur off and on over several weeks or longer depending on the cause. Home Care: If symptoms are severe, rest quietly in bed. Change positions slowly. There is usually one position that will feel best, such as lying on one side or the other or lying on your back with your head slightly raised on pillows. Reduce your salt intake until you are symptom free for one month. Fluid retention caused by salt can make this condition worse. Do not drive or work with dangerous machinery for one week after symptoms disappear. Be cautious about using stairs. (In case of a sudden unexpected recurrence.) Take medicine as prescribed to relieve your symptoms. Unless another medicine was prescribed for nausea, vomiting and vertigo, you may use dypo-hen-rmrvodz motion sickness pills, such as meclizine (Bonine, Bonamine, Antivert) or dimenhydrinate (Dramamine). All these medicines may cause drowsiness. Follow Up with your doctor or as advised by our staff. Get Prompt Medical Attention if any of the following occur: Worsening of vertigo, not controlled by medicine prescribed Repeated vomiting not relieved by medicine prescribed Increased weakness or fainting Headache or unusual drowsiness Difficulty with vision, speech or movement of the face, arms or legs Clonazepam Oral tablet What is this medicine? CLONAZEPAM (kloe NA ze thomas) is a benzodiazepine. It is used to treat certain types of seizures. It is also used to treat panic disorder. How should I use this medicine? Take this medicine by mouth with a glass of water. Follow the directions on the prescription label. If it upsets your stomach, take it with food or milk. Take your medicine at regular intervals. Do not take it more often than directed. Do not stop taking or change the dose except on the advice of your doctor or health palliative care physician. A special MedGuide will be given to you by the pharmacist with each prescription and refill. Be sure to read this information carefully each time. Talk to your pipe washer regarding the use of this medicine in children. Special care may be needed. What side effects may I notice from receiving this medicine? Side effects that you should report to your doctor or health palliative care physician as soon as possible: allergic reactions like skin rash, itching or hives, swelling of the face, lips, or tongue changes in vision confusion depression hallucinations mood changes, excitability or aggressive behavior movement difficulty, staggering or jerky movements muscle cramps, weakness tremors unusual eye movements Side effects that usually do not require medical attention (report to your doctor or health palliative care physician if they continue or are bothersome): constipation or diarrhea difficulty sleeping, nightmares dizziness, drowsiness headache increased saliva from your mouth nausea, vomiting What may interact with this medicine? herbal or dietary supplements medicines for depression, anxiety, or psychotic disturbances medicines for fungal infections like fluconazole, itraconazole, ketoconazole, voriconazole medicines for HIV infection or AIDS medicines for sleep prescription pain medicines propantheline rifampin sevelamer some medicines for seizures like carbamazepine, phenobarbital, phenytoin, primidone What if I miss a dose? If you miss a dose, take it as soon as you can. If it is almost time for your next dose, take only that dose. Do not take double or extra doses. Where should I keep my medicine? Keep out of the reach of children. This medicine can be abused. Keep your medicine in a safe place to protect it from theft. Do not share this medicine with anyone. Selling or giving away this medicine is dangerous and against the law. Store at room temperature between 15 and 30 degrees C (59 and 86 degrees F). Protect from light. Keep container tightly closed. Throw away any unused medicine after the expiration date. What should I tell my health care provider before I take this medicine? They need to know if you have any of these conditions: an alcohol or drug abuse problem bipolar disorder, depression, psychosis or other mental health condition glaucoma kidney or liver disease lung or breathing disease myasthenia gravis Parkinson's disease seizures or a history of seizures suicidal thoughts an unusual or allergic reaction to clonazepam, other benzodiazepines, foods, dyes, or preservatives or trying to get breast-feeding What should I watch for while using this medicine? Visit your doctor or health palliative care physician for regular checks on your progress. Your body may become dependent on this medicine. If you have been taking this medicine regularly for some time, do not suddenly stop taking it. You must gradually reduce the dose or you may get severe side effects. Ask your doctor or health palliative care physician for advice before increasing or decreasing the dose. Even after you stop taking this medicine it can still affect your body for several days. If you suffer from several types of seizures, this medicine may increase the chance of grand mal seizures (epilepsy). Let your doctor or health palliative care physician know, he or she may want to prescribe an additional medicine. You may get drowsy or dizzy. Do not drive, use machinery, or do anything that needs mental alertness until you know how this medicine affects you. To reduce the risk of dizzy and fainting spells, do not stand or sit up quickly, especially if you are an older patient. Alcohol may increase dizziness and drowsiness. Avoid alcoholic drinks. Do not treat yourself for coughs, colds or allergies without asking your doctor or health palliative care physician for advice. Some ingredients can increase possible side effects. The use of this medicine may increase the chance of suicidal thoughts or actions. Pay special attention to how you are responding while on this medicine. Any worsening of mood, or thoughts of suicide or dying should be reported to your health palliative care physician right away. Women who become while using this medicine may enroll in the [place] Drug Registry by calling . This registry collects information about the safety of antiepileptic drug use during . You have been given the following additional information: Ruptured Tm, Traumatic Labyrinthitis Clonazepam Oral tablet (Electronically signed by Demarcus Llamas Dr. 06/24/2016 5:59)
== END 2016-06-24 01:09 | disposition home or self-care (01) ==
LOC: ED SRH 22:21
DX: H72.92 Unspecified perforation of tympanic membrane, left ear (principal); H81.392 Other peripheral vertigo, left ear; H83.02 Labyrinthitis, left ear; K21.9 Gastro-esophageal reflux disease without esophagitis; Z87.891 Personal history of nicotine dependence; Z79.82 Long term (current) use of aspirin; Z88.5 Allergy status to narcotic agent
CPT/HCPCS: 90100; 92235; 95059